=== PATIENT | female | born 1970 | race American Indian/Alaskan Native ===

== ENCOUNTER 2017-07-15 06:18 | Observation (INO) | payer BC ==
[2017-07-13 13:14] LABS: Hematocrit 35.9 % (30.3-42.9); Hemoglobin 11.9 gm/dl (10.1-14.3); Mean Corpuscular HGB Conc 33 % (30-34); Mean Corpuscular Hemoglobin 27 pg (28-32); Mean Corpuscular Volume 83 fl (79-97); Platelet Count 350 K/mm3 (140-440); Red Blood Count 4.34 M/mm3 (3.65-5.03)
--- NOTE | 2017-07-13 13:44 | Anesthesia Consultation ---
<DONG SANTACRUZ IVÁN - Last Filed: 07/13/17 13:40> Anesthesia Consult and Med Hx Date of service: 07/13/17 - Airway Anesthetic Teeth Evaluation: Good ROM Head & Neck: Adequate Mental/Hyoid Distance: Adequate Mallampati Class: Class II Intubation Access Assessment: Probably Good - Pulmonary Exam CTA: Yes - Cardiac Exam Cardiac Exam: RRR - Pre-Operative Health Status ASA Pre-Surgery Classification: ASA3 Proposed Anesthetic Plan: General Nerve Block: TAP - Pulmonary Hx Smoking: No Hx Asthma: No Hx Sleep Apnea: Yes ("mild" no CPAP) - Cardiovascular System Hx Hypertension: Yes (since 2007) Hx Heart Attack/AMI: No (Echo 10/20 EF 60%. Stress test 10/20 positive for ishemia , ST depression) Hx Heart Murmur: Yes - Central Nervous System CVA: Yes (cerebral hemorrhage in 2012, no residual change) Hx Psychiatric Problems: No - Endocrine Hx Liver Disease: No Hx Non-Insulin Dependent Diabetes: No (borderline) - Hematic Hx Anemia: Yes (Iron transfusion 07/02/17) Hx Sickle Cell Disease: No - Other Systems Hx Alcohol Use: Yes (occas) Hx Cancer: No Hx Obesity: Yes - Additional Comments Anesthesia Medical History Comments: [facility] <JODIE ARROYO - Last Filed: 07/15/17 07:17> Anesthesia Consult and Med Hx - Pre-Anesthesia Comment Pre-Anesthesia Comments: Cardiac clearance is on chart, Cath from 01/19 shows non critical stenosis with EF 60%.
[2017-07-13 14:22] LABS: Anisocytosis 2+; Band Neutrophils # (Manual) 0.1 K/mm3; Basophils % (Manual) 0 % (0.0-1.8); Platelet Estimate Consistent w Auto; Total Cells Counted 100
[2017-07-15] MEDS ORDERED: LACTATED RINGERS 1,000 ML IV SCH (07:00)
[2017-07-15] MEDS ORDERED: VERSED IV NR (07:00)
[2017-07-15] MEDS ORDERED: PEPCID PO NR (07:00)
[2017-07-15] MEDS ORDERED: NACL BACTERIOSTATIC INFILTRATI ONE (07:12)
--- NOTE | 2017-07-15 07:17 | Anesthesia Day of Surgery ---
Anesthesia Day of Surgery - Day of Surgery Patient Examined: Yes Patient H&P Reviewed: Yes Patient is NPO: Yes
[2017-07-15] MEDS ORDERED: ZOFRAN IV PRN ×2 (07:18→10:17)
[2017-07-15] MEDS ORDERED: MORPHINE IV PRN (07:18)
--- NOTE | 2017-07-15 07:22 | History and Physical Report ---
History of Present Illness Date of examination: 07/15/17 Date of admission: 07/15/2017 Chief complaint: uterine fibroids and dysfunctional uterine bleeding History of present illness: 47y/o with a history of uterine fibroids and dysfunctional uterine bleeding. The patient has had a myomectomy in the past. Her most recent ultrasound demonstrates return of uterine fibroids with the largest myoma measuring 3.2 cm. Her ultrasound is also evidence of a right complex cyst measuring 4.2 cm. The patient reports worsening of her menses with the passage of clots and increased cramping. She has elected to undergo definitive surgical management. Past History Past Medical History: other (uterine fibroids) Past Surgical History: section, myomectomy, other (ovarian cystectomy) IMPLEMENTATION TECHNICIAN History: herpes Social history: - Obstetrical History : 7 Para: 1 Hx # Term Pregnancies: 1 Number of Pregnancies: 0 Spontaneous Abortions: 6 Induced : 0 Number of Living Children: 1 Medications and Allergies Allergies Allergy/AdvReac Type Severity Reaction Status Date / Time Penicillins Allergy pass out Verified 07/09/17 10:41 Home Medications Medication Instructions Recorded Confirmed Last Taken Type Propranolol HCl [Inderal LA] 60 mg PO DAILY 07/09/17 07/15/17 07/15/17 06:14 History Active Meds: Active Medications Lactated Ringer's (Lactated Ringers) 1,000 mls @ 100 mls/hr IV DIRECT [place] Midazolam HCl (Versed) 2 mg IV PREOP NR Stop: 07/15/17 23:59 Review of Systems All systems: negative Genitourinary: vaginal bleeding, pelvic pain - Physical Exam Breasts: Positive: deferred Cardiovascular: Regular rate Lungs: Positive: Clear to auscultation Abdomen: Positive: normal appearance Results Result Diagrams: 07/13/17 13:00 All other labs normal. Assessment and Plan - Patient Problems (1) Leiomyoma Current Visit: Yes Status: Acute Plan to address problem: Patient is scheduled for robotic hysterectomy (2) Dysfunctional uterine bleeding Current Visit: Yes Status: Acute
[2017-07-15] MEDS ORDERED: LACTATED RINGERS 1,000 ML ONE ×2 (07:25→10:10)
[2017-07-15] MEDS: SUBLIMAZE IV NR ×2 (07:26→07:41)
[2017-07-15] MEDS ORDERED: MARCAINE 0.5% 60 ML INFILTRATI ONE (07:28)
[2017-07-15] MEDS ORDERED: ADRENALIN ONE (07:29)
[2017-07-15] MEDS ORDERED: SUBLIMAZE ONE (07:29)
[2017-07-15] MEDS ORDERED: GARAMYCIN 120 MG in NACL 0.9% 100 ML IV SCH (07:30)
[2017-07-15] MEDS ORDERED: NEOSPORIN GU IR ONE ×2 (07:35→10:19)
[2017-07-15] MEDS ORDERED: GELFOAM POWDER 1GM MM ONE ×2 (07:37→10:19)
[2017-07-15] MEDS ORDERED: THROMBIN (BOVINE) TP ONE ×2 (07:37→10:19)
[2017-07-15] MEDS ORDERED: DIPRIVAN 10 MG/ML IV ONE (07:38)
[2017-07-15] MEDS ORDERED: XYLOCAINE MPF 2% ONE (07:38)
[2017-07-15] MEDS ORDERED: ZEMURON IV ONE (07:38)
[2017-07-15] MEDS ORDERED: DILAUDID ONE (07:40)
[2017-07-15] MEDS ORDERED: NEURONTIN PO NR (08:00)
[2017-07-15] MEDS ORDERED: CLEOCIN 600 MG/50 mL 600 MG/50 ML BAG IV SCH (08:00)
[2017-07-15] MEDS ORDERED: NEOSTIGMINE ONE (09:06)
[2017-07-15] MEDS ORDERED: DECADRON ONE (09:06)
[2017-07-15] MEDS ORDERED: ROBINUL ONE (09:06)
[2017-07-15] MEDS ORDERED: ZOFRAN ONE (09:06)
--- NOTE | 2017-07-15 10:16 | Operative Report ---
Operative Report Operative Report: Date of surgery: 07/15/2017 Preoperative diagnoses: Symptomatic uterine fibroids; dysfunctional uterine bleeding; pelvic pain; right ovarian cyst Postoperative diagnoses: Same as above; pelvic adhesive disease Procedure: Robotic hysterectomy; right ovarian cystectomy; lysis of adhesions Surgeon: Keya Frances M.D. Commercial Illustrator: Dione Vang Anesthesia: Gen. endotracheal anesthesia Estimated blood loss: 50 mL Pathology: Cervix, uterus, right ovarian cyst Indication: 47-year-old 063 with a history of symptomatic uterine fibroids and right ovarian cyst. The patient has a history of a prior myomectomy and delivery. The patient had failed medical management and elected to undergo definitive surgical management. Procedure: The patient was taken to the operating room and given general endotracheal anesthesia without complication. She is prepped and draped in a normal sterile fashion. A bivalve speculum was placed in the patient's vagina and a single- tooth tenaculum placed on the anterior lip of the cervix. The uterus was sounded with the uterine sound. A FilterSure uterine manipulator was placed in the bivalve speculum was then removed. Attention was then turned to the patient's abdomen where a millimeter supra umbilical skin incision was then made. A Veress needle was placed and peritoneal entry was verified water-filled syringe. Insufflation of the peritoneal cavity was performed with CO2 gas. The 12 mm trocar was then placed under direct visualization. An additional 8 mm trocar was placed on the patient's left and right lateral side just opposite of the supraumbilical trocar. An additional 5 mm right lateral trocar was then placed as the accessory port. General survey of the patient's abdomen and pelvis revealed numerous omental adhesions to the anterior abdominal wall. The uterus was densely adherent anteriorly. There was a large right ovarian simple cyst measuring approximately 4 cm. The tubes were adherent to the ovaries bilaterally. The monopolar scissors had to be used in order to improve visualization into the pelvis. Lysis of the omental adhesions were performed with the monopolar scissors. The patient was then placed in steep Trendelenburg. The da Cuauhtemoc robot was then engaged. A fenestrated forcep was placed in arm 2 and a vessel sealer was placed in arm 1. The surgeon then transferred to the surgical console. Additional lysis of adhesion had to be performed in order to release the anterior portion of the uterus to the bladder. Omentum and bowel were adherent to the left ovary. The ovary could not be safely dissected from the tube secondary to the dense adhesions. The tubo-ovarian ligament was then coagulated and transected. The round ligament was then coagulated and transected also. The vesicouterine peritoneum was then entered from the patient's right side. The uterine vessels were then coagulated with the vessel sealer. The vessels were then transected . Attention was then turned to the patient's left side where the tubo-ovarian ligament was again isolated coagulated and transected. Lysis of adhesions had to be performed on the left side secondary to the omental adhesions to the ovary. The uterine vessels on the left side were coagulated and transected. The vesical peritoneum was then entered from the left and joined in the midline. Peritoneum was reflected off of the lower uterine segment. The right ovarian cyst was grasped with the graspers. An incision was made through the cortex of the cyst with the monopolar scissors. The ovarian cyst was dissected from the ovarian cortex. There was evidence of clear kate fluid from the ovarian cyst. The blood supply to the uterus was adequately contained , a posterior colpotomy was made. The V care ring was visualized. Posterior colpotomy was created with the monopolar scissors. The incision was continued circumferentially until anterior colpotomy was made. The cervix and uterus were amputated from the vaginal cuff. The uterus was then removed along with the right ovarian cyst through the vagina and a warm laparotomy sponge was placed and maintain the pneumoperitoneum. The vaginal cuff was then closed in a running fashion with V lock suture. Irrigation of the pelvis was performed. Gelfoam with thrombin was applied to the incision. The supraumbilical 12 mm trocar site was closed with the Shaun Mann device. The skin was then reapproximated with 4-0 Monocryl. The tissue was sent to pathology which included the cervix and uterus. The patient was then successfully extubated. She was then taken to the recovery room in stable condition. All sponge laps and needle counts were correct x2.
[2017-07-15] MEDS ORDERED: MILK OF MAGNESIA PO PRN (10:17)
[2017-07-15] MEDS ORDERED: NARCAN 0.4 MG/1 ML IV PRN (10:17)
[2017-07-15] MEDS ORDERED: PERCOCET 5/325 PO PRN (10:17)
[2017-07-15] MEDS ORDERED: NACL 0.9% IR ONE ×2 (10:18→10:19)
[2017-07-15] MEDS ORDERED: MORPHINE PCA 30MG/30ML IV ONE (10:28)
[2017-07-15] MEDS: TORADOL IV SCH ×3 (10:42→23:13)
[2017-07-15] MEDS ORDERED: TYLENOL PO PRN (11:00)
[2017-07-15] MEDS ORDERED: MORPHINE PCA 30MG/30ML IV SCH (11:00)
--- NOTE | 2017-07-15 11:32 | Post Anesthesia Evaluation ---
- Post Anesthesia Evaluation Patient Participated: Yes Airway Patent: Yes Stable Respiratory Function: Yes Nausea/Vomiting: No Temp > 96.8F: Yes Pain Manageable: Yes Adequeate Hydration: Yes Anesthesia Complications: No Block Receding Appropriately: Not Applicable Patient on Ventilator: No
[2017-07-15] MEDS ORDERED: MOTRIN PO PRN (12:35)
[2017-07-15] MEDS: D5LR 1,000 ML IV SCH (19:55)
[2017-07-16] MEDS: D5LR 1,000 ML IV SCH (01:55)
[2017-07-16] MEDS: TORADOL IV SCH (05:12)
--- NOTE | 2017-07-16 08:21 | Progress Note ---
Assessment and Plan - Patient Problems (1) Leiomyoma Current Visit: Yes Status: Acute Plan to address problem: Routine postoperative care Discharge home today (2) Dysfunctional uterine bleeding Current Visit: Yes Status: Acute Subjective - Subjective Date of service: 07/16/17 Interval history: The patient has been able to void since her Rice. She tolerated her clear diet without complication. Details of the surgery were discussed with the patient. Patient reports: appetite normal, voiding normally, pain well controlled Objective - Vital Signs Latest vital signs: Vital Signs Temp Pulse Resp BP BP Pulse Ox 07/16/17 08:00 18 07/16/17 06:07 18 07/16/17 05:12 18 07/16/17 04:00 98.7 F 71 18 121/68 07/16/17 03:57 20 07/16/17 01:54 20 07/16/17 00:00 98.6 F 69 16 120/77 07/15/17 23:59 18 07/15/17 23:13 20 07/15/17 21:58 18 07/15/17 20:00 98.6 F 88 16 120/77 07/15/17 19:55 18 97 07/15/17 18:00 18 07/15/17 16:00 98.6 F 84 18 119/67 98 07/15/17 14:05 18 07/15/17 12:15 97.8 F 77 16 138/85 98 07/15/17 11:30 64 15 139/79 96 07/15/17 11:15 65 14 152/87 96 07/15/17 11:00 61 14 147/82 100 07/15/17 10:45 56 L 16 156/84 100 07/15/17 10:40 58 L 14 143/87 100 07/15/17 10:35 59 L 10 L 140/81 100 07/15/17 10:30 56 L 15 136/78 100 07/15/17 10:26 57 L 12 140/78 100 Intake and Output 07/15/17 07/16/17 07/16/17 22:59 06:59 14:59 Intake Total 1250 Output Total 1300 1500 Balance -1300 -250 Intake: IV 750 D5lr 1,000 ml @ 125 mls/ 750 hr IV DIRECT [facility] Rx#: [id number] Intake, Free Water 500 Output: Urine 1300 1500 Indwelling Catheter 1300 1500 Other: Total, Output Amount 600 900 Voiding Method Indwelling Catheter - Exam Abdomen: Present: normal appearance, soft
--- NOTE | 2017-07-16 08:23 | Discharge Summary ---
Providers - Providers Date of Admission: 07/15/17 10:17 Date of discharge: 07/16/17 Attending physician: KARY RODRIGUEZ Primary care physician: FLORECITA GASTELUM Hospitalization Reason for admission: other (symptomatic uterine fibroids) Procedure: other (robotic hysterectomy and right ovarian cystectomy) Incision: normal, dry Discharge diagnosis: other (symptomatic uterine fibroids) Hospital course: The patient was admitted the day of surgery underwent a robotic hysterectomy and a right ovarian cystectomy. Please see operative note for details of surgery. Postoperative course was routine. Condition at discharge: Good Disposition: DC- TO HOME OR SELFCARE - Discharge Diagnoses (1) Leiomyoma Status: Acute (2) Dysfunctional uterine bleeding Status: Acute Plan - Discharge Medications Prescriptions: Ibuprofen [Motrin] 800 mg PO Q8HR PRN #60 tablet PRN Reason: Pain Oxycodone HCl/Acetaminophen [Percocet 7.5/325 mg] 1 each PO Q6HR PRN #45 tablet PRN Reason: Pain - Provider Discharge Summary Activity: no sex for 6 weeks, no heavy lifting 4 weeks, no strenuous exercise Diet: routine Instructions: routine Additional instructions: [] Smoking cessation referral if applicable(refer to patient education folder for contact #) [] Refer to [facility]'s [facility] Booklet Call your doctor immediately for: * Fever > 100.5 * Heavy vaginal bleeding ( >1 pad per hour) * Severe persistent headache * Shortness of breath * Reddened, hot, painful area to leg or breast * Drainage or odor from incision. * Keep incision clean and dry at all times and follow doctor's instructions regarding bathing/showering Follow-up in [address] Rodriguez - Follow up plan Forms: [facility] Discharge Summary
[2017-07-16 15:37] VITALS: BP 110/68
== END 2017-07-16 14:40 | disposition home or self-care (01) ==
LOC: OR 06:18 → OB 10:17
PROVIDERS: ADMIT Obstetrics & Gynecology; ATTEND Obstetrics & Gynecology
DX: N93.8 Other specified abnormal uterine and vaginal bleeding (principal); N83.201 Unspecified ovarian cyst, right side; D25.9 Leiomyoma of uterus, unspecified
CPT/HCPCS: 36415; 58571; 64450; 82962; 84703; 85007; 85014; 85018; 85025; 86850; 86900; 86901; 88305; 88307; 96374; 96375; 96376; A4217; A4649; G0378; J0171; J1100; J1170; J1580; J1885; J2250; J2270; J2405; J2704; J2710; J3010; J7120; J7121; S2900